=== PATIENT | male | born 2000 | race Caucasian/White ===

== ENCOUNTER 2018-02-17 18:15 | Emergency (ER) | payer OTHER ==
[~2018-02-17] VITALS: Ht 175.3 cm; Wt 112.9 kg
[2018-02-17 18:45] VITALS: TEMP 36.3; Ht 175.3 cm; Wt 112.9 kg
[2018-02-17] MEDS ORDERED: COUGH DROP (SUGAR FREE) LOZ 24 LOZ/1 BOX LOZ STA (19:10)
[2018-02-17] MEDS ORDERED: BENZONATATE 100MG CAP PO ONE (19:15)
[2018-02-17] MEDS ORDERED: PRED50TA PO (19:46)
--- NOTE | 2018-02-17 19:46 | EMERGENCY ROOM VISIT NOTE ---
History Report prepared by Ray: Nahum Tolbert Under the Supervision of: Dr. Drew Garcia M.D. First contact with patient: 18:50 Chief Complaint: EAR PAIN Stated Complaint: HEADACHE, EAR ACHE, LACK OF HEARING, REF. BY History of Present Illness The patient is a 17 year old white male with no significant past medical history who presents to the Emergency Room with complaints of a constant headache that he has been experiencing for the past 3-4 weeks. The headache pain has acutely worsened over the past couple of days. The patient's headache is worsened by loud noises. He notes that there was an episode in November when he had some blood come out of the right ear. He did visit with his PCP on Wednesday two days ago and was placed on Amoxicillin. Source of History: patient, family Onset: 3-4 weeks ago Position: head, ear (right) Quality: ache (ear ache) Timing: constant, worsening Modifying Factors (Worsening): other (Loud noises) Review of Systems See HPI for pertinent positives and negatives. A total of ten systems were reviewed and were otherwise negative. Past Medical & Surgical Hx of Asthma Family History Diabetes mellitus Heart disease Hypertension Social History Smoking Status: Never Smoker Marital Status: single Housing Status: lives with family Occupation Status: employed Current/Historical Medications Scheduled Prednisone (Prednisone), 50 MG PO DAILY Allergies Coded Allergies: No Known Allergies (Unverified , 02/17/18) Physical Exam Vital Signs Date Time Temp Pulse Resp B/P (MAP) Pulse Ox O2 Delivery O2 Flow Rate FiO2 02/17/18 19:54 88 20 118/70 98 Room Air 02/17/18 18:45 36.3 64 16 147/85 100 Room Air Physical Exam GENERAL: Awake, alert, well-appearing, NAD HENT: Normocephalic, atraumatic. There is a scant serous effusion to the right TM, good light reflex, no erythema, no bulging at the TM. Scant erythema of the left TM, good light reflex, no effusion. No bulging to the mastoid area. The posterior oropharynx was clear. EYES: Normal conjunctiva. Sclera non-icteric. NECK: Supple. No nuchal rigidity. FROM. Full ROM, no signs of meningismus, no adenopathy. RESPIRATORY: CTAB, no rhonchi, wheezing, crackles CARDIAC: RRR, no MRG ABDOMEN: Soft, NTND, BS+ MSK: No chest wall TTP, no LE edema NEURO: GCS 15, CN 2-12 intact, moves all 4s on command SKIN: No rash or jaundice noted. Medical Decision & Procedures Medications Administered Medications (Trade) Dose Ordered Sig/Jorge Route Start Time Stop Time Status Last Admin Dose Admin Prednisone (PredniSONE TAB) 50 mg ONE STAT PO 02/17/18 19:10 02/17/18 19:12 DC 02/17/18 19:10 50 MG ED Course 1853: The patient was evaluated in room A3. A complete history and physical exam was performed. 1909: Ordered Menthol 1 rhona, Prednisone 50 mg PO. 1914: Ordered Benzonatate 100 mg PO. 1947: I reevaluated the patient. Discussed results and discharge instructions: He and his mother verbalized understanding and agreement. The patient is ready for discharge. Medical Decision The patient is a 17 year old white male with no significant past medical history who presents to the Emergency Room with complaints of a constant headache that he has been experiencing for the past 3-4 weeks. Nursing notes reviewed. Ancillary studies and prior records reviewed. Differential diagnosis: Etiologies such as migraine headache, meningitis, sinusitis, CO exposure, ICH, SAH, infection, tumor, headache, sinus thrombosis, arterial dissection, as well as others were entertained. Patient seen and evaluated at bedside. Referred for ear pain. Been ongoing for some time. Started on new abx yesterday. On exam no signs of meningismus, non focal neuro exam, well appearing. TMs fairly normal, no signs of mastoiditis on physical exam. Less likely mastoiditis, perforated TM, or meningitits. Patient given steroids for home. The patient was educated about the findings as listed above. All questions were answered and the patient was pleased with the treatment. Return instructions were outlined and the patient was discharged in stable condition. Medication Reconcilliation Current Medication List: was personally reviewed by me Blood Pressure Screening Patient's blood pressure: Elevated blood pressure Impression Primary Impression: Sinus congestion Additional Impression: Ear pain, left Scribe Attestation The scribe's documentation has been prepared under my direction and personally reviewed by me in its entirety. I confirm that the note above accurately reflects all work, treatment, procedures, and medical decision making performed by me. Departure Information Dispostion Home / Self-Care Prescriptions Prednisone (PREDNISONE) 50 Mg Tab 50 MG PO DAILY for 4 Days, #4 TAB Prov: Drew Garcia M.D. 02/17/18 Patient Instructions Headache Pain, My [facility] Additional Instructions Please return to the emergency department if you have worsening or recurrent symptoms not amenable to at-home treatment. Please call for a follow-up appointment with her primary care physician. Please take your medications as prescribed. If you have other concerns and/or complaints please feel free to also call your primary care physician's office or return the ED for further evaluation, management, and treatment. You may take 600 mg Ibuprofen every 6 hours as needed for pain with food. You may take tylenol 1000 mg every 6 hours as needed for pain. You may take motrin and tylenol separately or at the same time. You may take your steroids in the morning preferably with food. Take your medications as prescribed. If taking an antibiotic consider taking a probiotic and/or eating yogurt, but at the least, please take with food as it can cause upset stomach. You have been examined and treated today on an emergency basis only. This is not a substitute for, or an effort to provide, complete comprehensive medical care. It is impossible to recognize and treat all injuries or illnesses in a single emergency department visit. It is therefore important that you follow up closely with [facility], your PCP, and/or your specialist(s). Call as soon as possible for an appointment. Thank you for your time and consideration. I look forward to speaking with you again soon. Please don't hesitate to call us if you have any questions. Problem Qualifiers
[2018-02-17 19:54] VITALS: BP 118/70; PULSE 88; O2SAT 98
== END 2018-02-17 19:55 | disposition home or self-care (01) ==
LOC: C.EDB 18:17 → C.EDA 19:55
DX: R09.81 Nasal congestion (principal); H92.02 Otalgia, left ear; J45.909 Unspecified asthma, uncomplicated; Z83.3 Family history of diabetes mellitus; Z82.49 Family history of ischemic heart disease and other diseases of the circulatory system

== ENCOUNTER → 2018-03-03 | Outpatient (CLI) | payer OTHER ==
--- NOTE | 2018-03-03 16:58 | DIAGNOSTIC IMAGING REPORT ---
SINUSES WITH BRAIN LAB CLINICAL HISTORY: 17 years-old Male presenting with CHRONIC SINUSITIS, headache. TECHNIQUE: Multidetector CT of the sinuses was performed without the use of intravenous contrast. IV contrast: None. A dose lowering technique was used consistent with the principles of ALARA (as low as reasonably achievable). COMPARISON: None. CT DOSE (mGy.cm): The estimated cumulative dose is 559.28 mGy.cm. FINDINGS: Key Account Director topogram: Unremarkable. Mucosal thickening in the bilateral maxillary sinuses. Mucosal thickening results in narrowing and obstruction of the bilateral ostiomeatal units. Ethmoid air cell and right frontal sinus mucosal thickening also noted. Mastoid air cells and middle ears clear. No osseous sclerosis to suggest chronic sinusitis. No osseous erosion. Nasofrontal ethmoid recesses are also narrowed secondary to mucosal thickening. No bony dehiscence of the optic canals or carotid siphons. Minimal rightward deviation of the bony nasal septum anteriorly. Orbits normal. Superficial soft tissues of the face within normal limits. Limited intracranial evaluation normal. IMPRESSION: 1. Mild mucosal thickening involving the bilateral maxillary sinuses, ethmoid air cells, and right frontal sinus. No current evidence of acute or chronic sinusitis at this time. Mucosal thickening obstructs the bilateral ostiomeatal units and nasal frontoethmoidal recesses. 2. No significant anatomic variant. Electronically signed by: Charan Jo M.D. 03/03/2018 4:57 PM Dictated Date/Time: 03/03/2018 4:54 PM
== END | disposition home or self-care (01) ==
LOC: C.CTS 16:09
PROVIDERS: ATTEND Otolaryngology
DX: J32.9 Chronic sinusitis, unspecified (principal)